=== PATIENT | female | born 1950 | race Two or more races ===

== ENCOUNTER 2016-12-28 06:50 | Emergency (ER) | payer BC, OTHER ==
[~2016-12-28] VITALS: Ht 154.9 cm; Wt 70.3 kg
[2016-12-28 07:32] LABS: Basophils # (auto) 0 uL; Basophils % (auto) 0.8 % (0.0-2.0); CONDITION Y; Eosinophils # (auto) 0.3 uL; Eosinophils % (auto) 4.4 % (0.0-7.0); Hematocrit 46.2 % (36.0-46.0); Hemoglobin 15.9 g/dL (12.2-16.2); Lymphocytes # (auto) 1.6 uL; Lymphocytes % (auto) 27.8 % (10.0-50.0); Mean Corpuscular Hemoglobin 31.6 pg (28.0-32.0); Mean Corpuscular Hgb Conc. 34.3 g/dL (32.0-36.0); Mean Corpuscular Volume 91.9 fL (80.0-100.0); Mean Platelet Volume 7.4 fL (7.4-10.4); Monocytes # (auto) 0.5 uL; Monocytes % (auto) 8.5 % (0.0-12.0); Neutrophils # (auto) 3.4 uL; Neutrophils % (auto) 58.5 % (37.0-80.0); Platelet Count (auto) 337 10^3/uL (140-450); Red Cell Distribution Width 13.6 % (11.6-16.0); White Blood Cell 5.8 10^3/uL (4.4-10.8)
[2016-12-28 07:35] LABS: Urine Bilirubin Negative (Negative); Urine Blood Negative /uL (Negative); Urine Color Yellow (Yellow); Urine Glucose Normal (Normal); Urine Ketone Negative (Negative); Urine Mucus FEW (None Seen); Urine Nitrite Negative (Negative); Urine RBC 1 /hpf (0 - 4); Urine Squamous Epithelial Cell MANY /hpf (<5); Urine Urobilinogen Normal (Negative); Urine pH 6.5 (5.0-8.0)
[2016-12-28 07:49] LABS: Calcium 8.6 mg/dL (8.5-10.1); Potassium 4.2 mmol/L (3.5-5.1)
[2016-12-28 07:52] LABS: Bilirubin, Total 0.7 mg/dL (0.2-1.0); Total Protein 7.8 g/dL (6.4-8.2)
[2016-12-28] MEDS ORDERED: GASTROGRAFIN 30 ML SOL ONE (09:29)
[2016-12-28] MEDS ORDERED: KETOROLAC TROMETH 60MG/2ML VIAL IM ONE ×2 (09:30)
[2016-12-28] MEDS ORDERED: IOHEXOL 300 MG/ML 100ML BOTTLE IJ ONE (11:04)
[2016-12-28 12:05] VITALS: BP 145/81
== END 2016-12-28 13:29 | disposition home or self-care (01) ==
LOC: ER 06:50
DX: K40.90 Unilateral inguinal hernia, without obstruction or gangrene, not specified as recurrent (principal); K44.9 Diaphragmatic hernia without obstruction or gangrene; I10 Essential (primary) hypertension; Z88.8 Allergy status to other drugs, medicaments and biological substances
CPT/HCPCS: 36415; 74177; 80053; 81001; 85025; 96372; 99285; J1885; Q9963; Q9967

== ENCOUNTER 2017-01-06 00:43 | Emergency (ER) | payer BC ==
[~2017-01-06] VITALS: Ht 154.9 cm; Wt 70.3 kg
[2017-01-06 01:29] LABS: Basophils # (auto) 0 uL; Basophils % (auto) 0.5 % (0.0-2.0); CONDITION Y; Eosinophils # (auto) 0.3 uL; Eosinophils % (auto) 3.8 % (0.0-7.0); Hemoglobin 14.5 g/dL (12.2-16.2); Lymphocytes # (auto) 2.2 uL; Mean Corpuscular Hemoglobin 31.2 pg (28.0-32.0); Mean Corpuscular Hgb Conc. 33.8 g/dL (32.0-36.0); Mean Corpuscular Volume 92.4 fL (80.0-100.0); Mean Platelet Volume 7.7 fL (7.4-10.4); Monocytes # (auto) 0.5 uL; Monocytes % (auto) 7.5 % (0.0-12.0); Neutrophils # (auto) 3.9 uL; Neutrophils % (auto) 56.2 % (37.0-80.0); Platelet Count (auto) 329 10^3/uL (140-450); Red Cell Distribution Width 13.3 % (11.6-16.0); White Blood Cell 6.9 10^3/uL (4.4-10.8)
[2017-01-06 01:35] LABS: INR 0.94 (0.9-1.15); Partial Thromboplastin Time 27.3 sec (22.64-33.71); Prothrombin Time 10.2 sec (9.37-12.3)
[2017-01-06 01:40] LABS: Albumin 3.7 g/dL (3.4-5.0); Calcium 8.5 mg/dL (8.5-10.1); Potassium 4.3 mmol/L (3.5-5.1)
[2017-01-06 01:42] LABS: Bilirubin, Total 0.4 mg/dL (0.2-1.0); Total Protein 7.4 g/dL (6.4-8.2)
[2017-01-06 03:55] VITALS: BP 149/81
== END 2017-01-06 04:19 | disposition home or self-care (01) ==
LOC: ER 00:47
DX: R10.9 Unspecified abdominal pain (principal); R20.0 Anesthesia of skin; Z48.01 Encounter for change or removal of surgical wound dressing; I10 Essential (primary) hypertension; Z98.890 Other specified postprocedural states
CPT/HCPCS: 36415; 80053; 85025; 85610; 85730